=== PATIENT | female | born 1990 | race Caucasian/White ===

== ENCOUNTER 2018-07-05 22:55 | Inpatient (IN) | payer MEDICAID, OTHER ==
[2015-07-03 07:33] VITALS: BMI 31.5
[2018-07-06] MEDS ORDERED: Lactated Ringer's 1,000 ML IV ONE (00:26)
[2018-07-06] MEDS ORDERED: Sodium Citrate/Citric Acid 15 ml Sol PO ONE (00:26)
--- NOTE | 2018-07-06 00:54 | OBHP ---
Datetime: 07/06/2018 00:41 IP Adm Impression: Term, intrauterine IP Admit Plan: Admit to unit; Initiate Section protocol Admit Comment, IP Provider: 28 yo female with an IUP at 39 weeks + SROM with clear fluid and not in labor yet. Hx of 2 previous C/S's VSS, Afebrile FHT's reassuring Will admit and processed the admision orders Attempted to contact Dr. Jorge Will perform a repeat C/S in AM Pelvic Type - PN: Adequate Extremities - PN: Normal Abdomen - PN: Normal Back - PN: Normal Breast - PN: Not Done Lungs - PN: Normal Heart - PN: Normal Thyroid - PN: Normal Neurologic - PN: Normal HEENT - PN: Normal General - PN: Normal Presentation-Admit: Vertex FHR - Baseline A Provider: 150's Amniotic Fluid Color, Provider: Clear Membranes, Provider: Ruptured Contraction Comments Provider: ocassional Gestation - Est Wks by US: 39.0 Pool Provider: Positive Nitrazine Provider: Positive EGA AdmitDate IP: 39.0 Vital Signs Provider: Reviewed; Within Normal Limits IP Chief Complaint: Suspected ruptured membranes NICHD Variability Prov Fetus A: Absent - Undetectable NICHD Accel Fetus A IP Provider: 10X10 NICHD Decel Fetus A IP Provider: None Dilatation, Provider: 0 Effacement, Provider: 0 Station, Provider: -3 Genitourinary Exam: Normal DTRs - PN: Normal
[2018-07-06 01:38] LABS: SQUAMOUS EPITHIAL 3 /hpf (0-5); URINE AMORPHOUS SEDIMENT OCC /ul (<OCC); URINE BACTERIA OCC (<OCC); URINE BILIRUBIN NEGATIVE (NEGATIVE); URINE BLOOD NEGATIVE (NEGATIVE); URINE CLARITY Hazy (Clear); URINE COLOR Yellow (YELLOW); URINE GLUCOSE (UA) NORMAL (Normal); URINE LEUKOCYTE ESTERASE NEG Leu/uL (Negative); URINE PROTEIN NEGATIVE (NEGATIVE); URINE UROBILINOGEN NORMAL mg/dL (0.2-1.0)
[2018-07-06 01:39] LABS: BASO % 0.1 % (0.0-2.0); EOS % 0.3 % (0.0-4.0); HEMOGLOBIN 12.4 g/dL (11.0-16.0); LYMPH # 2.1 K/uL (1.0-4.3); LYMPH % 18.8 % (20.0-40.0); MEAN CELL VOLUME 91.6 fL (81.0-99.0); MEAN CORPUSCULAR HEMOGLOBIN 31.5 pg (27.0-31.0); MEAN CORPUSCULAR HGB CONC 34.3 g/dL (33.0-37.0); MEAN PLATELET VOLUME 10.9 fL (7.2-11.7); MONO # 0.7 K/uL (0.0-0.8); MONO % 6.3 % (0.0-10.0); NEUT # 8.1 K/uL (1.8-7.0); NEUT % 74.5 % (50.0-75.0); RBC 3.94 Mil/uL (3.80-5.20); RED CELL DISTRIBUTION WIDTH 13.8 % (11.5-14.5); WHITE BLOOD COUNT 10.9 K/uL (4.8-10.8)
[2018-07-06 02:11] LABS: BARBITURATES, UR NEGATIVE (NEGATIVE); BENZODIAZEPINES, UR NEGATIVE (NEGATIVE); OPIATES, UR NEGATIVE (NEGATIVE); PHENCYCLIDINE, UR NEGATIVE (NEGATIVE)
[2018-07-06] MEDS ORDERED: Sodium Citrate/Citric Acid 15 ml Sol ONE (03:14)
[2018-07-06] MEDS ORDERED: cefOXitin IV 2 gm in Saline 2 GM/50 ML BAG IVPB ONE (03:15)
[2018-07-06] MEDS ORDERED: ceFAZolin 2 GM in Sodium Chloride 0.9% 100 ML IVPB ONE (07:00)
--- NOTE | 2018-07-06 07:10 | OBADHP ---
Datetime: 07/06/2018 02:00 Pelvic Type - PN: Adequate Extremities - PN: Normal Abdomen - PN: Normal Back - PN: Normal Breast - PN: Not Done Lungs - PN: Normal Heart - PN: Normal Thyroid - PN: Normal Neurologic - PN: Normal HEENT - PN: Normal General - PN: Normal IP Chief Complaint: Suspected ruptured membranes Genitourinary Exam: Normal DTRs - PN: Normal EGA AdmitDate IP: 39.0 IP Adm Impression: Term, intrauterine ; Ruptured Membranes IP Admit Plan: Admit to unit; Initiate Section protocol Datetime: 07/06/2018 00:41 Admit Comment, IP Provider: 28 yo female with an IUP at 39 weeks + SROM with clear fluid and not in labor yet. Hx of 2 previous C/S's VSS, Afebrile FHT's reassuring Will admit and processed the admision orders Attempted to contact Dr. Jorge Will perform a repeat C/S in AM Presentation-Admit: Vertex FHR - Baseline A Provider: 150's Amniotic Fluid Color, Provider: Clear Membranes, Provider: Ruptured Contraction Comments Provider: ocassional Gestation - Est Wks by US: 39.0 Pool Provider: Positive Nitrazine Provider: Positive Vital Signs Provider: Reviewed; Within Normal Limits NICHD Variability Prov Fetus A: Absent - Undetectable NICHD Accel Fetus A IP Provider: 10X10 NICHD Decel Fetus A IP Provider: None Dilatation, Provider: 0 Effacement, Provider: 0 Station, Provider: -3
--- NOTE | 2018-07-06 07:27 | OBADHP ---
Datetime: 07/06/2018 02:00 Admit Comment, IP Provider: 28 yo female with an IUP at 39 weeks + SROM with clear fluid and not in labor yet. Hx of 2 previous C/S's VSS, Afebrile FHT's reassuring. Pt not in pain and comfortable Pt admitted for repeat C/S and will do it in AM Admit and Pre-Op labs drawn records not available Waiting for Dr. Jorge to see if she will be here in AM for the C/S All patients questions answered, via interpretation and to her full satisfction. Presentation-Admit: Vertex FHR - Baseline A Provider: 130 Amniotic Fluid Color, Provider: Clear Membranes, Provider: Ruptured Gestation - Est Wks by US: 39.0 Pool Provider: Positive Nitrazine Provider: Positive Vital Signs Provider: Within Normal Limits NICHD Variability Prov Fetus A: Moderate 6-25bpm NICHD Accel Fetus A IP Provider: 10X10 FHR Category Provider Fetus A: Category I NICHD Decel Fetus A IP Provider: None EGA AdmitDate IP: 39.0
[2018-07-06] MEDS ORDERED: cefOXitin IV 2 gm in Dextrose 2 GM/50 ML BAG IVPB ONE (07:30)
[2018-07-06] MEDS ORDERED: Phenylephrine 10 mg/ml Inj ONE (07:36)
[2018-07-06] MEDS ORDERED: ePHEDrine 50 mg/ml Inj ONE (07:36)
[2018-07-06] MEDS ORDERED: Oxytocin 20 units in LR 2,000 ML IV ONE (07:38)
[2018-07-06] MEDS ORDERED: Oxytocin 10 Units/ml Inj ONE (07:38)
[2018-07-06] MEDS ORDERED: DiphenhydrAMINE 50 mg/ml Inj IVP PRN (09:36)
[2018-07-06] MEDS ORDERED: Naloxone 0.4 mg/ml Inj (Adult) IVP PRN (09:36)
[2018-07-06] MEDS ORDERED: Oxycodone/Acetaminophen 5/325 mg Tab PO PRN (09:58)
--- NOTE | 2018-07-06 10:44 | OBDS ---
DELIVERY PERSONNEL Delivery Doctor: Scrub Nurse: Xin Palacios OBT Creche Attendant: Claudia Rausch RN Anesthesiologist: Dayanara Meyer MD Resident: Omar Henson MATERNAL INFORMATION Delivery Anesthesia: Spinal Medications in Delivery: Pitocin 20 units IV; Estimated Blood Loss (ml): 600 Placenta Cultured: No Maternal Complications: None Provider Comments: Repeat LTC C/S with delivery of a viable Male from KEIRA position and witho ut complications. Apgars 9_9 and BW 6lbs, 3 oz. EBL 600 mls Patient and both tolerated the procedure well and both left the OR in S_S condition LABOR SUMMARY EDC: 07/13/2018 00:00 No. Babies in Womb: 1 Attempted: No Labor Anesthesia: None LABOR INFORMATION Reason for Induction: Not Applicable Oxytocin: N/A Antibiotics # of Doses: 1 Antibiotics Time of Last Dose: MEfoxin 2gm IV @ 0806 Steroids Given: None Reason Steroids Not Administered: Not Applicable MEMBRANES Membranes Rupture Method: Spontaneous Rupture of Membranes: 07/05/2018 22:30 Length of Rupture (hrs): 10.27 Amniotic Fluid Color: Clear Amniotic Fluid Amount: None Amniotic Fluid Odor: Normal STAGES OF LABOR Stage 3 hrs: 0 Stage 3 min: 1 VAGINAL DELIVERY Sponge Count Correct: N/A Sharps Count Correct: N/A CSECTION DELIVERY Primary Indication: Repeat Elective Secondary Indication: SROM CSection Urgency: Non Elective CSection Incidence: Repeat Labor: Labor Elective: Nonelective CSection Incision: Lower Uterine Transverse Uterine Closure: Single-layer closure BABY A INFORMATION Delivery Date/Time: 07/06/2018 08:46 Method of Delivery: Born in Route : No : N/A Forceps: N/A Vacuum Extraction: N/A Shoulder Dystocia : No SHOULDER DYSTOCIA BABY A Delivery Date/Time: 07/06/2018 08:46 PRESENTATION/POSITION BABY A Presentation: Cephalic Cephalic Presentation: Vertex Vertex Position: Right Occipital Posterior Breech Presentation: N/A PLACENTA INFORMATION BABY A Placenta Delivery Time : 07/06/2018 08:47 Placenta Method of Delivery: Manual Removal Placenta Status: Delivered SCORES BABY A Heart Rate 1 min: >100 bpm Resp Effort 1 min: Good Cry Reflex Irritability 1 min: Cough or Sneeze or Pulls Away Muscle Tone 1 min: Active Motion Color 1 min: Body [employer], Extremities Blue Resuscitation Effort 1 min: N/A SCORE 1 MIN: 9 Heart Rate 5 min: >100 bpm Resp Effort 5 min: Good Cry Reflex Irritability 5 min: Cough or Sneeze or Pulls Away Muscle Tone 5 min: Active Motion Color 5 min: Body [employer], Extremities Blue Resuscitation Effort 5 min: N/A SCORE 5 MIN: 9 INFORMATION BABY A Gestational Age at Delivery: 39.0 Gestational Status: Term Outcome : Liveborn Condition : Stable Infant Sex: Male IDENTIFICATION/MEDS BABY A ID Band Number: [id number] ID Band Location: Right Leg; Right Arm Sensor Applied: Yes Sensor Number: [id number] Sensor Location : Cord Clamp Vitamin K Given : Not Given Erythromycin Given: Not Given WEIGHT/LENGTH BABY A Infant Birthweight (gms): 2815 Infant Weight (lb): 6 Infant Weight (oz): 3 Length Inches: 18.00 Length cms: 45.7 CORD INFORMATION BABY A No. Cord Vessels: 3 Nuchal Cord : Around Neck x1, Loose Cord Blood Taken: Yes Suction: Mouth; Nose ASSESSMENT BABY A Infant Complications: None Physical Findings at Delivery: Within Normal Limits Respirations: Appears Normal Cut And Cover Line Worker/ALS Called : Yes Infant Care By: Transferred To: [facility]
[2018-07-06] MEDS: Prenatal Multivit/Folic Acid/Iron Tab PO SCH (18:57)
[2018-07-07 07:51] LABS: HEMOGLOBIN 11.5 g/dL (11.0-16.0); MEAN CELL VOLUME 90.8 fL (81.0-99.0); MEAN CORPUSCULAR HEMOGLOBIN 31.3 pg (27.0-31.0); MEAN CORPUSCULAR HGB CONC 34.4 g/dL (33.0-37.0); MEAN PLATELET VOLUME 11.3 fL (7.2-11.7); RBC 3.67 Mil/uL (3.80-5.20); RED CELL DISTRIBUTION WIDTH 13.5 % (11.5-14.5); WHITE BLOOD COUNT 10.1 K/uL (4.8-10.8)
--- NOTE | 2018-07-07 08:16 | OBDS ---
DELIVERY PERSONNEL Delivery Doctor: Scrub Nurse: Xin Palacios Animal Assisted Therapist: Claudia Rausch RN Anesthesiologist: Dayanara Meyer MD Resident: Omar Landa MATERNAL INFORMATION Delivery Anesthesia: Spinal Medications in Delivery: Pitocin 20 units IV; Estimated Blood Loss (ml): 600 Placenta Cultured: No Maternal Complications: None Provider Comments: Repeat LTC C/S with delivery of a viable Male from ROP position and witho ut complications. Apgars 9_9 and BW 6lbs, 3 oz. EBL 600 mls Patient and both tolerated the procedure well and both left the OR in S_S condition LABOR SUMMARY EDC: 07/13/2018 00:00 No. Babies in Womb: 1 Attempted: No Labor Anesthesia: None LABOR INFORMATION Reason for Induction: Not Applicable Oxytocin: N/A Group B Beta Strep: Positive Antibiotics # of Doses: 1 Antibiotics Time of Last Dose: MEfoxin 2gm IV @ 0806 Steroids Given: None Reason Steroids Not Administered: Not Applicable MEMBRANES Membranes Rupture Method: Spontaneous Rupture of Membranes: 07/05/2018 22:30 Length of Rupture (hrs): 10.27 Amniotic Fluid Color: Clear Amniotic Fluid Amount: None Amniotic Fluid Odor: Normal STAGES OF LABOR Stage 3 hrs: 0 Stage 3 min: 1 VAGINAL DELIVERY Sponge Count Correct: N/A Sharps Count Correct: N/A CSECTION DELIVERY Primary Indication: Repeat Elective Secondary Indication: SROM CSection Urgency: Non Elective CSection Incidence: Repeat Labor: Labor Elective: Nonelective CSection Incision: Lower Uterine Transverse Uterine Closure: Single-layer closure BABY A INFORMATION Delivery Date/Time: 07/06/2018 08:46 Method of Delivery: Born in Route : No : N/A Forceps: N/A Vacuum Extraction: N/A Shoulder Dystocia : No SHOULDER DYSTOCIA BABY A Delivery Date/Time: 07/06/2018 08:46 PRESENTATION/POSITION BABY A Presentation: Cephalic Cephalic Presentation: Vertex Vertex Position: Right Occipital Posterior Breech Presentation: N/A PLACENTA INFORMATION BABY A Placenta Delivery Time : 07/06/2018 08:47 Placenta Method of Delivery: Manual Removal Placenta Status: Delivered SCORES BABY A Heart Rate 1 min: >100 bpm Resp Effort 1 min: Good Cry Reflex Irritability 1 min: Cough or Sneeze or Pulls Away Muscle Tone 1 min: Active Motion Color 1 min: Body [place], Extremities Blue Resuscitation Effort 1 min: N/A SCORE 1 MIN: 9 Heart Rate 5 min: >100 bpm Resp Effort 5 min: Good Cry Reflex Irritability 5 min: Cough or Sneeze or Pulls Away Muscle Tone 5 min: Active Motion Color 5 min: Body [place], Extremities Blue Resuscitation Effort 5 min: N/A SCORE 5 MIN: 9 INFANT INFORMATION BABY A Gestational Age at Delivery: 39.0 Gestational Status: Term Infant Outcome : Liveborn Condition : Stable Sex: Male IDENTIFICATION/MEDS BABY A ID Band Number: [id number] ID Band Location: Right Leg; Right Arm Sensor Applied: Yes Sensor Number: [id number] Sensor Location : Cord Clamp Vitamin K Given : Not Given Erythromycin Given: Not Given WEIGHT/LENGTH BABY A Infant Birthweight (gms): 2815 Infant Weight (lb): 6 Weight (oz): 3 Infant Length Inches: 18.00 Infant Length cms: 45.7 CORD INFORMATION BABY A No. Cord Vessels: 3 Nuchal Cord : Around Neck x1, Loose Cord Blood Taken: Yes Suction: Mouth; Nose ASSESSMENT BABY A Infant Complications: None Physical Findings at Delivery: Within Normal Limits Infant Respirations: Appears Normal Geological Sample Tester/ALS Called : Yes Infant Care By: Transferred To: Nursery
--- NOTE | 2018-07-07 08:18 | OBPPN ---
Datetime: 07/07/2018 08:14 PP Pain Prov: Within normal limits PP Nausea Prov: Denies PP Flatus Prov: Yes PP Breasts Prov: Normal PP Heart Prov: Normal PP Lungs Prov: Normal PP Abdomen/Uterus Prov: Normal PP Lochia Prov: Normal PP Vulva/Perineum Prov: Normal PP CVA Tenderness Prov: Normal PP Extremities Prov: Normal PP Impression Prov: Normal progression PP Plan Prov: Continue present management PP Progress Note Prov: pt seen adn examiend rpeort pain cotorlled VSS PE see above A/P s/p RPLTCS POD #1 fu am lab pain mangment advance diet IP PP Procedures: None Vital Signs Provider PP: Reviewed; Within Normal Limits
[2018-07-07] MEDS: Prenatal Multivit/Folic Acid/Iron Tab PO SCH (09:09)
--- NOTE | 2018-07-08 08:15 | OBPPN ---
Datetime: 07/08/2018 08:13 PP Pain Prov: Within normal limits PP Nausea Prov: Denies PP Flatus Prov: Yes PP Breasts Prov: Normal PP Heart Prov: Normal PP Lungs Prov: Normal PP Abdomen/Uterus Prov: Normal PP Lochia Prov: Normal PP Vulva/Perineum Prov: Normal PP CVA Tenderness Prov: Normal PP Extremities Prov: Normal PP C/S Incision Prov: Normal PP Progress Prov: Normal PP Comments Phys Exam Prov: incisionc c//dih abd; soft, nt, nd, no ugarign, no reboudn tendner funds: firm, below leve of umbicus lochia, non foul mselling PP Impression Prov: Normal progression PP Progress Note Prov: pt seen adn examiend adn reports pian contorlled pt ambuting, voidng, not pas sing flatus, tolerating deit. denie sany fever, chills, nause, vomiting, cps, sob. pt is breast feedi ng VSS PE see above A/P s/p RTLCS POD #2 doing well pain manamgnet regualr diet am labs incentive spirometer abodina binder encouarbe bresat feedign adn amabuitng Vital Signs Provider PP: Reviewed; Within Normal Limits
[2018-07-08] MEDS: Prenatal Multivit/Folic Acid/Iron Tab PO SCH (10:34)
--- NOTE | 2018-07-09 07:49 | OBDCSUM ---
Datetime: 07/09/2018 07:48 Discharged to, Provider: Home Follow up at, Provider: Dr Jorge Disch Instr Activity: Normal activity Disch Instr Diet: Regular Discharge Instructions, Provider: Routine instructions given Discharge Diagnosis, Provider: Term Delivered Discharge Time: 07/09/2018 07:48 Follow up in weeks, Provider: 1 week Disch Referrals: None Contraception discussed, Prov: Yes Disch Activity Restrictions: No sexual activity; Nothing in vagina - [place], tampons, douche Discharge Comment, Provider: precautions give Contraception after Delivery: Not Planning to Use
--- NOTE | 2018-07-09 07:49 | OBPPN ---
Datetime: 07/09/2018 07:45 PP Pain Prov: Within normal limits PP Nausea Prov: Denies PP Flatus Prov: Yes PP Breasts Prov: Normal PP Heart Prov: Normal PP Lungs Prov: Normal PP Abdomen/Uterus Prov: Normal PP Lochia Prov: Normal PP Vulva/Perineum Prov: Normal PP CVA Tenderness Prov: Normal PP Extremities Prov: Normal PP C/S Incision Prov: Normal PP Progress Prov: Normal PP Impression Prov: Normal progression PP Plan Prov: Continue present management PP Progress Note Prov: pt seen adn examiend adn reports pian contorlled pt ambuting, voidng, not pas sing flatus, tolerating deit. denie sany fever, chills, nause, vomiting, cps, sob. pt is breast feedi ng VSS PE see above A/P s/p RTLCS POD #3 doing well discharge home rto 1 week IP PP Procedures: None Vital Signs Provider PP: Reviewed; Within Normal Limits
[2018-07-09] MEDS: Prenatal Multivit/Folic Acid/Iron Tab PO SCH (11:13)
[2018-07-09 21:20] VITALS: BP 105/72; PULSE 85; RESP 18; TEMP 98.7; O2SAT 100
--- NOTE | 2018-07-11 03:55 | OP ---
Copied To: Cierra Ocampo DO Attending MD: Cierra Ocampo DO PROCEDURE DATE: 07/06/2018 PREOPERATIVE DIAGNOSES: 1. Intrauterine at term. 2. Two previous sections. 3. Presented with spontaneous rupture of membranes and prodromal labor. 4. Requesting an elective repeat section. POSTOPERATIVE DIAGNOSES: 1. Intrauterine at term. 2. Two previous sections. 3. Presented with spontaneous rupture of membranes and prodromal labor. 4. Cervical nuchal cord x1 in loose. 5. Viable delivered. PROCEDURE: Repeat low transverse cervical section with delivery of a viable male from the KEIRA position and without complications. The cervical nuchal cord was released from the delivery of the head. Apgars were 9 and 9 and 1 and 5 minutes respectively and weight was 6 pounds 3 ounces or 2815 g. SURGEON: Cierra Ocampo DO LAB DIRECTOR: Malachi Yan MD ANESTHESIA: Spinal. ANESTHESIOLOGIST: Dr. Meyer. COMPLICATIONS: None. SPECIMEN: Cord blood and cord pH were obtained and sent. ESTIMATED BLOOD LOSS: 100 mL. PREOPERATIVE FINDINGS: The patient is a 28-year-old female gravid 3 and para 2 with an intrauterine at term and was admitted with spontaneous rupture of membranes and in prodromal labor with a history of two previous sections and for an elective repeat section. The record was reviewed, and it was noted to be uneventful. The patient was noted to be RH negative and have received . Her GBS was negative. The patient has received 2 g of Mefoxin IV for surgical prophylaxis. Her bilateral tubes and ovaries were examined at the time of section and found to be within normal limits. There was no other gross pathology noted. PREOPERATIVE NOTE: The procedure, the risks and the possible complications were fully reviewed with the patient to include but not exclusively hemorrhage, infection or injury to bowel, bladder, bilateral tubes and ovaries, internal blood vessels or any other internal organs. The patient verbalized understanding and requested to proceed and signed the consent. DESCRIPTION OF PROCEDURE: The patient was taken to the operating room, she was given a spinal form of anesthesia and she was sterilely prepped and draped in the usual manner for the above-named procedure. The Reaves catheter was inserted. A time-out was then carried out as adequate and as indicated, and after ascertaining an adequate level of anesthesia, the procedure was initiated. The knife was utilized to make a low transverse skin incision in the suprapubic area following the previous scar and utilizing the Pfannenstiel technique, the abdomen was entered. Lysis of adhesions was required in order to gain access to the abdominal cavity, and the bladder flap was developed with difficulty and placed underneath the [place] blade. The second knife was then utilized to make a low transverse uterine incision in the lower uterine segment which was very thin, and the membranes were ruptured with return of clear fluid and the was then delivered from the HESHAM position. The bulb syringe was utilized to suction the naso and the oropharynx upon delivery of the head and upon completion of the delivery, which was carried out without difficulty. The cord was doubly clamped and transected, and the infant was passed to the security flex officer in attendance for further inspection. The cord blood and the cord pH were obtained and sent and the placenta was spontaneously delivered and sent to Pathology. The uterus was exteriorized through the abdominal incision after some more lysis of adhesions in order to allow this. The endometrial cavity was cleansed with a moist lap and the uterine incision was then closed utilizing a PDS suture in a full-thickness manner with an adequate closure and adequate hemostasis. Bilateral tubes and ovaries were noted to be within normal limits, and after cleaning the cul-de-sac of blood clots, the uterus was repositioned in the abdominal cavity. Bilateral gutters were also cleansed, and after ascertaining adequate hemostasis of the uterine incision, we proceeded to close the abdomen in layers. The rectus muscle was reapproximated in the midline with 3 interrupted sutures of 2-0 Vicryl and incorporating the peritoneum. The fascia was closed with 0 PDS and the skin was closed with the kishore. Sterile dressing was applied, and after evacuating the vagina of blood clots, the procedure was terminated. All instruments and sponges were accounted for x3. The patient and the tolerated the procedure well and they both left the operating room in stable and satisfactory condition. Cierra Ocampo DO
== END 2018-07-09 14:15 | disposition home or self-care (01) | DRG 371 ==
LOC: C.EROB 22:55 → C.4D 07-06 01:22 → C.4M 07-06 11:50
PROVIDERS: ADMIT Obstetrics & Gynecology; ATTEND Obstetrics & Gynecology
PROC: 10D00Z1 Extraction of Products of Conception, Low, Open Approach (ICD-10-PCS; principal; 2018-07-06)
DX: O34.211 Maternal care for low transverse scar from previous cesarean delivery (principal); O69.82X0 Labor and delivery complicated by other cord entanglement, without compression, not applicable or unspecified; Z3A.39 39 weeks gestation of pregnancy; Z37.0 Single live birth